=== PATIENT | female | born 1955 | race Caucasian/White ===

== ENCOUNTER 2019-09-01 09:25 | Outpatient (CLI) | payer BC ==
--- NOTE | 2019-09-01 10:54 | ULT ---
LIVER ULTRASOUND INCLUDING COLOR AND SPECTRAL DOPPLER IMAGING: HISTORY: Abnormal liver function tests, obesity. FINDINGS: Liver echogenicity is white coarse throughout, evidence for nonspecific hepatic parenchymal process. Status post cholecystectomy. Common bile duct 0.6 cm. Visualized pancreas and right kidney are unr emarkable. Spleen is within normal limits in size. Vascular duplex with color and spectral Doppler imaging demonstrates antegrade hepatic and portal jada ous flow. IMPRESSION: Heterogeneous liver echogenicity, evidence for nonspecific diffuse hepatic parenchymal process. Stat us post cholecystectomy. Common bile duct 0.6 cm. Antegrade hepatic and portal venous flow. POS: [facility]
== END 2019-09-01 09:26 | disposition home or self-care (01) ==
LOC: ULT 09:25
PROVIDERS: ATTEND Internal Medicine Gastroenterology
DX: R94.5 Abnormal results of liver function studies (principal); E66.9 Obesity, unspecified; K76.89 Other specified diseases of liver; Z90.49 Acquired absence of other specified parts of digestive tract
CPT/HCPCS: 76705

== ENCOUNTER 2020-04-15 11:31 | Outpatient (CLI) | payer BC ==
--- NOTE | 2020-04-15 11:59 | RAD ---
EXAM: XR Pelvis AP STANDARD PROVIDED CLINICAL HISTORY: Pain FINDINGS: There is no evidence for fracture or other acute osseous abnormality. Alignment appears anatomic. Little nt spaces appear preserved. Bilateral sacroiliac joint degenerative changes are seen. IMPRESSION: No evidence for an acute osseous abnormality. Bilateral sacroiliac joint degenerative change.
--- NOTE | 2020-04-15 11:59 | RAD ---
XR Femur Rt 2 View STANDARD INDICATION: Right femur pain COMPARISON: None. FINDINGS: Bones: Enthesopathic changes seen off the right greater trochanter. No acute fracture or subluxation is evident. Soft tissues: Within normal limits. Joints: There is mild degenerative change involving the right hip and visualized aspects of the right knee. IMPRESSION: No acute osseous abnormality.
== END 2020-04-15 11:32 | disposition home or self-care (01) ==
LOC: BICRAD 11:31
PROVIDERS: ATTEND Internal Medicine
DX: M19.90 Unspecified osteoarthritis, unspecified site (principal); M53.3 Sacrococcygeal disorders, not elsewhere classified
CPT/HCPCS: 72170

== ENCOUNTER 2022-01-05 10:22 | Outpatient (CLI) | payer MEDICARE, BC | END 2022-01-05 10:23 | disposition home or self-care (01) | LOC: BICMAMMO 10:22 | PROVIDERS: ATTEND Internal Medicine | DX: Z13.820 Encounter for screening for osteoporosis (principal); Z78.0 Asymptomatic menopausal state; M85.89 Other specified disorders of bone density and structure, multiple sites | CPT/HCPCS: 77080 ==

== ENCOUNTER 2023-08-14 09:42 | Outpatient (CLI) | payer MEDICARE, BC | END 2023-08-14 09:43 | disposition home or self-care (01) | LOC: MRI 09:42 | PROVIDERS: ATTEND Internal Medicine Gastroenterology | DX: E11.9 Type 2 diabetes mellitus without complications (principal); D3A.00 Benign carcinoid tumor of unspecified site; B96.81 Helicobacter pylori [H. pylori] as the cause of diseases classified elsewhere; K21.9 Gastro-esophageal reflux disease without esophagitis; K74.60 Unspecified cirrhosis of liver | CPT/HCPCS: 74183; 82565 ==

== ENCOUNTER 2025-02-24 11:06 | Outpatient (CLI) | payer MEDICARE, BC | END 2025-02-24 11:07 | disposition home or self-care (01) | LOC: BICMAMMO 11:06 | PROVIDERS: ATTEND Internal Medicine | DX: Z78.0 Asymptomatic menopausal state (principal); M85.89 Other specified disorders of bone density and structure, multiple sites | CPT/HCPCS: 77080 ==